=== PATIENT | female | born 1955 | race Caucasian/White ===

== ENCOUNTER 2022-08-09 05:18 | Day surgery (SDC) | payer MEDICARE, OTHER, SELFPAY ==
[2022-08-09] VITALS (7 sets, daily range): BP systolic 94–124; BP diastolic 46–64; PULSE 79–85; RESP 14–18; TEMP 36–36.4; O2SAT 97–100; BMI 21.3
--- NOTE | 2022-08-09 | GASB_PTH ---
PATIENT: IMNGO MOSES LOC: EN U#:[id number] AGE/SX: 67/F ROOM: RE08/09/[address]: Dr. Edgardo Mooney DO : 1955 BED: DIS: 08/09/2022 SPEC #: [id number] RECD: 08/09/22 11:30 STATUS: MARIAELENA REBhakti #: [id number] VANESSA: 08/09/22 00:[address]: Edgardo Monoey DEPT: SURGICAL PATHOLOGY RECD BY: Lonny Cullen ENTERED: 08/09/22 11:31 SP TYPE: Gastric Bx OTHR DR: Dr. Kristyn Palacios MD Tissues: A - Gastric mucous membrane B - Esophageal mucous membrane C - Esophageal mucous membrane Procedures: Special Stain Group II Surgery Specimen Level IV Alcian Blue/PAS (control) HEADER OPERATION: Colonoscopy, EGD with biopsy (MAC) PRE-OP DIAGNOSIS: GERD TISSUE SUBMITTED: A ? Antrum for H. pylori and path, B ? Distal esophagus, C ? Random esophagus MICROSCOPIC DIAGNOSIS A. Gastric antrum, biopsy: Chronic gastritis with focal acute gastritis. See comment. B. Distal esophagus, biopsy: Gastroesophageal junctional mucosa with mild chronic inflammation. No evidence of goblet cell metaplasia. See comment. C. Esophagus, random biopsy: No pathologic change. AM:sailaja 08/10/2022 COMMENT A. The results of immunohistochemistry for Helicobacter pylori will be reported separately ([id number]). B. Alcian blue/PAS stain with matched control supports the above diagnosis. MICROSCOPIC DESCRIPTION Slides are reviewed. GROSS DESCRIPTION A - Received in fixative is one container labeled with the patient's name and designated antrum biopsy. The specimen consists of two irregular fragments of light matta soft tissue that in aggregate measure 0.7 x 0.6 x 0.1 cm. The specimen is totally submitted in one cassette. B - Received in fixative is one container labeled with the patient's name and designated distal esophagus. The specimen consists of one irregular fragment of light matta soft tissue that measures 0.5 x 0.5 x 0.1 cm. The specimen is totally submitted in one cassette. C - Received in fixative is one container labeled with the patient's name and designated random esophagus. The specimen consists of two irregular fragments of light matta soft tissue that in aggregate measure 0.7 x 0.7 x 0.1 cm. The specimen is totally submitted in one cassette. / AM:sailaja 08/09/2022 TC:2 CPT: 86397 x3, 18112
[2022-08-09] MEDS: Lactated Ringers 1,000 ML 15 ML IV (05:57)
[2022-08-09 06:22] LABS: Bedside Glucose 159 mg/dL (74-106)
--- NOTE | 2022-08-09 06:30 | IMM_PTH ---
PATIENT: MINGO MOSES LOC: EN U#:[id number] AGE/SX: 67/F ROOM: RE08/09/[address]: Dr. Edgardo Mooney DO : 1955 BED: DIS: 08/09/2022 SPEC #: [id number] RECD: 08/09/22 11:53 STATUS: MARIAELENA REQ #: [id number] VANESSA: 08/09/22 06:[address]: Edgardo Mooney DEPT: IMMUNOHISTOCHEMISTRY RECD BY: Cally Wong ENTERED: 08/09/22 11:54 SP TYPE: IMMUNO OTHR DR: Dr. Kristyn Palacios MD Tissues: A - Stomach, NOS Procedures: H Pylori (initial) PHYSICIAN & INSTITUTION [facility] [id number] SPECIMEN INFORMATION: Tissue Source: A - Antrum Clinical Info: GERD Specimen Number: [id number] CPT code: 15989 METHODOLOGY: Deparaffinized sections of prefer/formalin-fixed tissue or PAP/DQ stained slides are incubated with monoclonal/polyclonal antibodies/oligonucleotide probes. Localization is made via biotin free immunoperoxidase method. Appropriate controls are performed and reacted as expected. Results on target cell population are indicated in the following table: RESULTS: ANTIBODY / CLONE RESULT Block A H Pylori (polyclonal) positive These tests were developed and their performance characteristics determined by [facility]. They may not have been cleared or approved by the U.S. Food and Drug Administration. The FDA has determined that such clearance or approval is not necessary. The above immunohistochemical/dualISH markers are ordered and reviewed by the Pathologist. INTERPRETATION: A. Antrum, biopsy: Positive for Helicobacter pylori. AM:sailaja 08/12/2022
--- NOTE | 2022-08-09 06:33 | HP.PCM_ITS ---
History and Physical Date of Admission: 08/09/22 67 F who presents to the office today to schedule screening colonoscopy. Last colonoscopy was in 2011, that was her only colonoscopy, no polyps or other concerning findings. She had EGD in 08/2019 because of dysphagia--one benign- appearing intrinsic mild stenosis at 35 cm was dilated, biopsies were taken, she recalls these were benign. She had had dysphagia for years. PPI started after the esophageal dilation, no further dysphagia since then. She takes omeprazole 20 mg bid. No longer has heartburn on PPI, but she does occas feel reflux up the esophagus, especially if she bends over after eating. No nausea, vomiting, abd pain, early satiety. Occas diarrhea since having cholecystectomy in 2019, but it is managed by watching what she eats. No constipation, melena, hematochezia. ROS Const Constitutional: No fatigue ENT ENT: No difficulty swallowing Gastro GI: No abdominal pain, belching, bloating, change in bowel habits, change in stool character, coffee ground emesis, constipation, cramping, diarrhea, heartburn, difficulty swallowing, feeling full early, excessive flatus, incontinent of stools, Vomiting blood/hematemesis, Blood in stool, loose stools, Black,tarry stools, nausea/dyspepsia, pain with swallowing, vomiting or other Musc Musculoskeletal: No joint pain Skin Skin: No yellowing of the eye or itchy eyes Psych Psychiatric: No anxiety and No depression Endo Endocrine: No fatigue Aller/Imm Allergy/Immunologic: No itchy eyes Ike/Lymp Hematologic/Lymphatic: No easy bleeding or easy bruising Exam Const General: cooperative, healthy appearing and comfortable Nutritional Appearance: average body habitus Orientation: alert, awake and oriented x3 HENMT Head: normal to inspection Resp Effort & Inspection: normal respiratory effort GI Inspection: normal to inspection Assessment and Plan Assessment and Plan (1) GERD (gastroesophageal reflux disease): ?Status:?Chronic ?Plan: 67 yr old female with acid reflux but no heartburn on PPI, hiatal hernia, hx esophageal stenosis, need for screening colonoscopy. Will schedule her for EGD and colonoscopy, w/ office f/u 2 wks later. (2) Colonoscopy planned: ?Status:?Acute ?Plan: see above I have examined the patient and the H&P has been reviewed. There are no clinical changes since date of exam.
--- NOTE | 2022-08-09 07:16 | OP.EGD_ITS ---
Patient Name: Chrissie Medrano Procedure Date: 08/09/2022 6:25 AM Date of : 1955 Age: 67 Procedure: Upper GI endoscopy Indications: Heartburn Providers: Edgardo Mooney DO Medicines: Monitored Anesthesia Care Patient Profile: This is a 67 year old female. Refer to note in patient chart for documentation of history and physical. Patient has symptoms of chronic heartburn. Complications: No immediate complications. Procedure: Pre-Anesthesia Assessment: - Prior to the procedure, a History and Physical was performed, and patient medications and allergies were reviewed. The risks and benefits of the procedure and the sedation options and risks were discussed with the patient. All questions were answered and informed consent was obtained. Patient identification and proposed procedure were verified by the physician. Mental Status Examination: normal. Prophylactic Antibiotics: The patient does not require prophylactic antibiotics. Prior Anticoagulants: The patient has taken no previous anticoagulant or antiplatelet agents. ASA Grade Assessment: II - A patient with mild systemic disease. After reviewing the risks and benefits, the patient was deemed in satisfactory condition to undergo the procedure. The anesthesia plan was to use monitored anesthesia care (MAC). Immediately prior to administration of medications, the patient was re-assessed for adequacy to receive sedatives. The heart rate, respiratory rate, oxygen saturations, blood pressure, adequacy of pulmonary ventilation, and response to care were monitored throughout the procedure. The physical status of the patient was re-assessed after the procedure. After obtaining informed consent, the endoscope was passed under direct vision. Throughout the procedure, the patient's blood pressure, pulse, and oxygen saturations were monitored continuously. The pediatric colonoscope was introduced through the mouth, and advanced to the second part of duodenum. The upper GI endoscopy was accomplished without difficulty. The patient tolerated the procedure well. Scope In: 6:41:05 AM Scope Out: 6:47:13 AM Total Procedure Duration Time 0 hours 6 minutes 8 seconds Findings: Mucosal changes including small-caliber esophagus and white plaques were found in the middle third of the esophagus and in the lower third of the esophagus. Biopsies were obtained from the proximal and distal esophagus with cold forceps for histology of suspected eosinophilic esophagitis. Verification of patient identification for the specimen was done. Estimated blood loss was minimal. The Z-line was irregular and was found 38 cm from the incisors. Biopsies were taken with a cold forceps for histology. Verification of patient identification for the specimen was done. Estimated blood loss was minimal. A small hiatal hernia was present. Patchy mildly erythematous mucosa without bleeding was found in the gastric body. Biopsies were taken with a cold forceps for histology. Verification of patient identification for the specimen was done. Estimated blood loss was minimal. The first portion of the duodenum was normal. Impression: - Esophageal mucosal changes consistent with eosinophilic esophagitis. Biopsied. - Z-line irregular, 38 cm from the incisors. Biopsied. - Small hiatal hernia. - Erythematous mucosa in the gastric body. Biopsied. - Normal first portion of the duodenum. Recommendation: - Discharge patient to home. - Resume previous diet. - Continue present medications. - Await pathology results. Procedure Code(s): --- Professional --- 71086, Esophagogastroduodenoscopy, flexible, transoral; with biopsy, single or multiple CPT copyright 2017 [employer]. All rights reserved. The codes documented in this report are preliminary and upon sea kayaking guide review may be revised to meet current compliance requirements. Edgardo Mooney DO 08/09/2022 7:15:09 AM This report has been signed electronically. Number of Addenda: 0 Note Initiated On: 08/09/2022 6:25 AM
--- NOTE | 2022-08-09 07:16 | OP.CCLET_ITS ---
08/09/2022 Kristyn Palacios Md Re : Upper GI endoscopy procedure for Chrissie Medrano Dear Suzanne This procedure was performed on Tuesday, August 09, 2022. My impressions and recommendations are as follows: Impressions : - Esophageal mucosal changes consistent with eosinophilic esophagitis. Biopsied. - Z-line irregular, 38 cm from the incisors. Biopsied. - Small hiatal hernia. - Erythematous mucosa in the gastric body. Biopsied. - Normal first portion of the duodenum. Recommendations : - Discharge patient to home. - Resume previous diet. - Continue present medications. - Await pathology results. My findings are described in the full procedure note, which is enclosed. If I can be of further assistance, please feel free to contact me at . Sincerely, Edgardo Mooney, 08/09/2022 7:15:09 AM This report has been signed electronically.
--- NOTE | 2022-08-09 07:17 | OP.COLON_ITS ---
Patient Name: Chrissie Medrano Procedure Date: 08/09/2022 6:47 AM Date of : 1955 Age: 67 Procedure: Colonoscopy Indications: Screening for colorectal malignant neoplasm Providers: Edgardo Mooney DO Medicines: Monitored Anesthesia Care Patient Profile: This is a 67 year old female. Refer to note in patient chart for documentation of history and physical. Patient has symptoms of chronic heartburn. Last Colonoscopy: more than 10 years ago. Complications: No immediate complications. Procedure: Pre-Anesthesia Assessment: - Prior to the procedure, a History and Physical was performed, and patient medications and allergies were reviewed. The risks and benefits of the procedure and the sedation options and risks were discussed with the patient. All questions were answered and informed consent was obtained. Patient identification and proposed procedure were verified by the physician. Mental Status Examination: normal. Prophylactic Antibiotics: The patient does not require prophylactic antibiotics. Prior Anticoagulants: The patient has taken no previous anticoagulant or antiplatelet agents. ASA Grade Assessment: II - A patient with mild systemic disease. After reviewing the risks and benefits, the patient was deemed in satisfactory condition to undergo the procedure. The anesthesia plan was to use monitored anesthesia care (MAC). Immediately prior to administration of medications, the patient was re-assessed for adequacy to receive sedatives. The heart rate, respiratory rate, oxygen saturations, blood pressure, adequacy of pulmonary ventilation, and response to care were monitored throughout the procedure. The physical status of the patient was re-assessed after the procedure. After I obtained informed consent, the scope was passed under direct vision. Throughout the procedure, the patient's blood pressure, pulse, and oxygen saturations were monitored continuously. The pediatric colonoscope was introduced through the anus and advanced to the cecum, identified by appendiceal orifice and ileocecal valve. The colonoscopy was performed without difficulty. The patient tolerated the procedure well. The quality of the bowel preparation was good. Scope In: 6:49:58 AM Scope Withdrawal Time 0 hours 10 minutes 41 seconds Scope Out: 7:06:56 AM Total Procedure Duration Time 0 hours 16 minutes 58 seconds Findings: The perianal and digital rectal examinations were normal. The entire examined colon appeared normal on direct and retroflexion views. Impression: - The entire examined colon is normal on direct and retroflexion views. - No specimens collected. Recommendation: - Discharge patient to home. - Resume previous diet. - Continue present medications. - Repeat colonoscopy in 10 years for screening purposes. Procedure Code(s): --- Professional --- G0121, Colorectal cancer screening; colonoscopy on individual not meeting criteria for high risk CPT copyright 2017 [employer]. All rights reserved. The codes documented in this report are preliminary and upon supervisor rework review may be revised to meet current compliance requirements. Edgardo Mooney DO 08/09/2022 7:16:42 AM This report has been signed electronically. Number of Addenda: 0 Note Initiated On: 08/09/2022 6:47 AM
--- NOTE | 2022-08-09 07:17 | OP.CCLET_ITS ---
08/09/2022 Kristyn Palacios Md Re : Colonoscopy procedure for Chrissie Medrano Dear Suzanne This procedure was performed on Tuesday, August 09, 2022. My impressions and recommendations are as follows: Impressions : - The entire examined colon is normal on direct and retroflexion views. - No specimens collected. Recommendations : - Discharge patient to home. - Resume previous diet. - Continue present medications. - Repeat colonoscopy in 10 years for screening purposes. My findings are described in the full procedure note, which is enclosed. If I can be of further assistance, please feel free to contact me at . Sincerely, Edgardo Mooney, 08/09/2022 7:16:42 AM This report has been signed electronically.
[2022-08-11 18:07] LABS: Anti-Centromere B Ab 0.2 AI (0.0-0.9); Anti-Chromatin <0.2 AI (0.0-0.9); Anti-Jo <0.2 AI (0.0-0.9); Anti-Scleroderma-70 AB <0.2 AI (0.0-0.9); Anti-dsDNA Ab 1 IU/mL (0-9); Beef <0.10 kU/L (Class 0); Chocolate <0.10 kU/L (Class 0); Clam <0.10 kU/L (Class 0); Codfish <0.10 kU/L (Class 0); Corn <0.10 kU/L (Class 0); Egg, White <0.10 kU/L (Class 0); Egg, Whole <0.10 kU/L (Class 0); Milk (Cow) <0.10 kU/L (Class 0); Peanut <0.10 kU/L (Class 0); Pork <0.10 kU/L (Class 0); RNP Ab <0.2 AI (0.0-0.9); SCALLOP <0.10 kU/L (Class 0); SESAME SEED <0.10 kU/L (Class 0); SJOGREN'S Anti-SS-A test < 0.2 AI (0.0-0.9); SJOGREN'S Anti-SS-B test < 0.2 AI (0.0-0.9); Shrimp <0.10 kU/L (Class 0); Smith Ab <0.2 AI (0.0-0.9); Soybean <0.10 kU/L (Class 0); Walnut, (Food) <0.10 kU/L (Class 0); Wheat <0.10 kU/L (Class 0)
[2022-08-12 00:06] LABS: Albumin 3.6 g/dL (2.9-4.4); Alpha-1-Globulins 0.2 g/dL (0.0-0.4); Alpha-2-Globulins 0.6 g/dL (0.4-1.0); Cytoplasmic Ab (C-ANCA) <1:20 titer (Neg:<1:20); Gamma Globulin 0.8 g/dL (0.4-1.8); Immunoglobulin A 147 mg/dL (87-352); Immunoglobulin E 15 IU/mL (6-495); Immunoglobulin G 765 mg/dL (586-1602); Immunoglobulin M 134 mg/dL (26-217); Perinuclear Ab (P-ANCA) <1:20 titer (Neg:<1:20)
== END 2022-08-09 08:00 | disposition home or self-care (01) ==
LOC: EN 05:24 → AC 05:26
PROVIDERS: PCP Family Medicine; Referring Provider Family Medicine; Visit Provider Internal Medicine Gastroenterology
PROC: 0DJD8ZZ Inspection of Lower Intestinal Tract, Via Natural or Artificial Opening Endoscopic (ICD-10-PCS; CPT 45378; principal; 2022-08-09 06:25)
DX: Z12.11 Encounter for screening for malignant neoplasm of colon (principal); K29.00 Acute gastritis without bleeding; K44.9 Diaphragmatic hernia without obstruction or gangrene; K21.00 Gastro-esophageal reflux disease with esophagitis, without bleeding; B96.81 Helicobacter pylori [H. pylori] as the cause of diseases classified elsewhere; K31.89 Other diseases of stomach and duodenum; Z79.84 Long term (current) use of oral hypoglycemic drugs; Z79.899 Other long term (current) drug therapy
CPT/HCPCS: G0121; 43239; 36415; 82784; 82785; 82962; 84165; 86003; 86005; 86225; 86235; 86256; 86334; 88305; 88313; 88342; J7120; J2405